=== PATIENT | female | born 1995 | race Two or more races ===

== ENCOUNTER 2024-09-24 22:25 | Emergency (ER) | payer OTHER, SELFPAY ==
[2024-09-24 22:27] VITALS: BMI 25.2
[2024-09-24 22:35] VITALS: BP 119/72; PULSE 119; RESP 18; TEMP 36.9; O2SAT 97
--- NOTE | 2024-09-24 23:13 | PD.EDVAGBL ---
ED OB Contraction Preg RMI/HPI General Chief complaint: Vaginal Bleeding Stated complaint: VAGINAL BLEEDING, HEAVY [id number] Time Seen by Provider: 09/24/24 22:57 Arrival date/time: 09/24/24 22:25 29F with history of irregular periods presents to ED with 1 day of heavier than usual vaginal bleeding with clots. Unknown status. Limitations: no limitations Related Data Previous Rx's ?Medication ?Instructions ?Recorded KCL 8MEQ 1 tab PO QDAY ##3 03/06/13 Allergies Allergy/AdvReac Type Severity Reaction Status Date / Time NKA* Allergy Uncoded 03/06/13 13:49 Review of Systems Review of Systems Systems Reviewed: All systems reviewed, normal except as documented Constitutional Constitutional: Reports system reviewed and no additional complaints, except as documented, Denies fever(s) and Denies headache(s) ENT Ears, Nose, Mouth, and Throat: Denies disequilibrium and Denies headache(s) Cardiovascular Cardiovascular: Reports system reviewed and no additional complaints, except as documented, Denies chest pain and Denies dyspnea Respiratory Respiratory: Reports system reviewed and no additional complaints, except as documented, Denies cough and Denies dyspnea Gastrointestinal Gastrointestinal: Reports system reviewed and no additional complaints, except as documented, Denies abdominal pain, Denies nausea and Denies vomiting Genitourinary Genitourinary: Reports as per HPI and Reports abnormal vaginal bleeding Neurologic Neurologic: Reports system reviewed and no additional complaints, except as documented, Denies confusion, Denies disequilibrium and Denies headache(s) Psychiatric Psychiatric: Denies confusion Past Medical History Social History SMOKING STATUS: Never smoker ED Exam General Limitations: Present no limitations General appearance: Present alert and in no apparent distress Head Head exam: Present atraumatic Eye Eye exam: Present normal appearance, PERRL and EOMI ENT ENT exam: Present normal exam, normal oropharynx and mucous membranes moist Neck Neck exam: Present normal inspection, full ROM and trachea midline Chest Chest inspection: Present normal inspection and symmetric chest wall rise Respiratory Respiratory exam: Present normal lung sounds bilaterally Cardiovascular Cardiovascular exam: Present regular rate, normal rhythm and normal heart sounds Abdominal Exam Abdominal exam: Present soft and normal bowel sounds Extremities Exam Extremities exam: Present normal inspection and full ROM Back Exam Back exam: Present normal inspection and full ROM Neurological Exam Neurological exam: Present alert, oriented X3 and CN II-XII intact Psychiatric Psychiatric exam: Present normal affect and normal mood Skin Skin exam: Present warm, dry, intact and normal color Course Quality Measures none Orders Category Date Time Status US OB transvaginal Stat Exams 09/25/24 00:08 Taken ABO/RH Type Stat Lab 09/25/24 00:07 Completed Beta HCG,Quantitative Stat Lab 09/25/24 00:07 Completed CBC Stat Lab 09/24/24 23:33 Completed CMP [Comprehensive Metabolic Panel] Stat Lab 09/24/24 23:33 Completed HCG Qualitative,Urine Stat Lab 09/24/24 23:17 Completed Vital Signs Vital signs: Vital Signs Temperature 98.4 F 09/24/24 22:35 Pulse Rate 119 H 09/24/24 22:35 Respiratory Rate 18 09/24/24 22:35 Blood Pressure 119/72 09/24/24 22:35 Pulse Oximetry (%) 97 09/24/24 22:35 Oxygen Delivery Method Room Air 09/24/24 22:35 O2 at 97% on RA and WNLs Vaginal Bleeding MDM Narrative MDM Narrative: 29F with history of irregular periods presents to ED with 1 day of heavier than usual vaginal bleeding with clots. Unknown status. Physical exam reveals no pelvic tenderness. Patient is afebrile, calm, and alert. Upon reassessment 5 hours later, patient states bleeding/cramping has significantly lessened. US no IUP. Beta HCG around 2.5k, above discriminatory zone. Moderate leukocytosis, probably reactive to likely spontaneous miscarriage (evidenced by symptom improvement w/o intervention) vs very early vs occult ectopic. O+. No anemia. Patient data External records reviewed:: None Clinical information provided by:: patient Social determinants that could affect healthcare access:: none Patient has the following chronic illnesses:: none How is presenting disease/condition affected by chronic disease/condition?: no chronic disease Evaluation data The following diagnostics were reviewed and interpreted by me:: lab results and radiology exam(s) Lab and/or radiology exams considered but not ordered:: ordered Interpretation Summary: above Medications / Prescriptions Medications or Prescriptions considered but not ordered:: not ordered Medication administrations:: n/a Consultations Consultation(s) initiated? (list below): No Diagnosis Vaginal Bleeding Differential Diagnosis: missed , threatened , dysfunctional uterine bleeding, menometrorrhagia, incomplete , ectopic without intrauterine and vaginal bleeding Most likely diagnosis given after review of the tests above:: vaginal bleeding Admission Indicated Admission indicated?: not indicated Admission Request Was there a request for admission?: No Disposition Plan Disposition Plan: Discharge Discharge Attestation Discharge Attestation: The patient and all family members were given an opportunity to ask questions and understood the discharge instructions. Discharge instructions specifically effects, indications for sooner follow up or return to the emergency department, and the expected course of current diagnosis. Patient condition: Stable Discharge Plan Plan Patient Disposition: HOME (Self Care) Disposition Comment: Stable Prescriptions/Referrals Prescriptions/Med Rec: No Action KCL 8MEQ 1 tab PO QDAY Qty: 3 0RF Referrals: Filiberto Justice MD [Primary Care Provider] - In 1 week Problem List Clinical Impression: Vaginal bleeding Patient/Caregiver Discharge Instructions Education Materials: Understanding Uterine Bleeding Additional Instructions: Please follow-up with PCP/OBGYN within 24-48 hours and return immediately if symptoms worsen. Recommend repeat HCG/US in 48-72 hours. Print Language: Greenlandic Stand Alone Forms: Patient Portal Info Letter MACO/LUANN Supervising Physician LEOLA Supervising Physician: Dr. Moura
[2024-09-25 00:03] LABS: HCG Qualitative,Urine Positive
--- NOTE | 2024-09-25 00:08 | XR_ITS ---
Examination: OB Transvaginal ultrasound of the pelvis, complete Technique: Transvaginal sonographic images pelvis performed using culver scale imaging Exam date and time: September 25, 2024 0009 hrs. Indications: Onset vaginal bleeding beginning 2 hours ago Findings: Uterus 9.7 x 3.3 x 4.7 cm No uterine mass or intrauterine gestation Endometrial sign 0.4 cm Right ovary 2.4 x 2.1 x 2.3 cm arterial flow Left ovary 3.6 x 1.4 x 2.8 cm arterial flow No fluid in the cul-de-sac Impression: No uterine mass or intrauterine gestation.
[2024-09-25 00:23] LABS: Alanine Aminotransferase 11 U/L (10-49); Albumin, Serum 4.4 gm/dL (3.5-5.0); Albumin/Globulin Ratio 1.5 (1.2-2.2); Alkaline Phosphatase 60 U/L (46-116); Anion Gap 10 (7-16); Aspartate Amino Transferase 14 U/L (0-34); BUN/Creatinine Ratio 15 Ratio (12-20); Bilirubin,Total 0.3 mg/dL (0.3-1.2); Blood Urea Nitrogen 12 mg/dL (9-23); Calcium 9.1 mg/dL (8.3-10.6); Calcium (Corrected) 9.1 mg/dL (8.5-10.1); Carbon Dioxide 22.8 mMol/L (20.0-31.0); Chloride 108 mMol/L (98-107); Creatinine (Component) 0.8 mg/dL (0.6-1.3); Estimated Creatinine Clearance 78.9 mL/min (>60); Glucose 119 mg/dL (74-106); Osmolality,Calculated 281 (275-295); Potassium 3.6 mMol/L (3.4-5.1); Sodium 141 mMol/L (136-145); Total Protein 7.4 gm/dL (5.7-8.2); eGFR > 60 See Note
[2024-09-25 00:27] LABS: Basophils # (Auto) 0.1 Thou/mm3 (0.0-0.2); Basophils % (Auto) 0 % (0-2.5); Eosinophils % (Auto) 0 % (0-10); Hematocrit 40.7 % (36.0-46.0); Hemoglobin 14.4 g/dL (12.0-16.0); Immature Granulocytes % (Auto) 0 % (0-0); Immature Granulocytes Auto 0.05 Thou/mm3 (0.00-0.00); Lymphocytes # (Auto) 1.7 Thou/mm3 (1.0-4.8); Lymphocytes % (Auto) 11 % (10-50); Mean Corpuscular HGB Conc 35.4 g/dl (31.0-37.0); Mean Corpuscular Hemoglobin 33.3 pg (25.0-35.0); Mean Corpuscular Volume 94 fL (80-100); Monocytes # (Auto) 0.7 Thou/mm3 (0.0-0.8); Monocytes % (Auto) 4 % (0-12); Neutrophils # (Auto) 13.2 Thou/mm3 (1.8-7.7); Neutrophils % (Auto) 84 % (37-80); Nucleated Red Blood Cell % 0 /100 WBC (0); Platelet Count 224 Thou/mm3 (140-440); RDW Standard Deviation 44.9 fL (36.4-46.3); Red Blood Count 4.33 Miln/mm3 (4.00-5.20); White Blood Count 15.7 Thou/mm3 (3.6-11.0)
[2024-09-25 01:08] LABS: Beta HCG,Quantitative 2517 mIU/mL (<5.0)
--- NOTE | 2024-09-25 02:16 | PRELIM_ITS ---
Pelvic ultrasound (transabdominal and transvaginal) with doppler and wave doppler spectral analysis. September 25, 2024 0009 hours Clinical history: Bleeding; positive HCG. Technique: Real-time, grayscale, transabdominal and transvaginal pelvic ultrasound was performed using Duplex scanning including arterial inflow, venous outflow, color and spectral Doppler. Comparison: None. Findings: The uterus is normal in size measuring 9.7 x 3.3 x 4.7 cm. The endometrium is unremarkable and measures 0.4 cm. Active peristalsis noted within the endometrial canal. No evidence of intrauterine . The right ovary measures 2.4 x 2.1 x 2.3 cm and is unremarkable. The left ovary measures 3.6 x 1.4 x 2.8 cm and is unremarkable. Both ovaries demonstrate color flow and spectral waveforms on Doppler evaluation. There is no adnexal mass. There is no free fluid on the submitted images. Impression: No evidence of intrauterine . Differential diagnosis includes ectopic , very early , and spontaneous . No evidence of ovarian torsion. Discussion Details: Results verbally communicated to : Dr. Alva at 02:07 AM 09/25/2024 Report Electronically Signed By: Devan Concepcion 09/25/2024 2:15:20 AM [EST]
== END 2024-09-25 04:16 | disposition home or self-care (01) ==
PROVIDERS: Physician Assistant; Emergency Provider Emergency Medicine; PCP Family Medicine
DX: N93.9 Abnormal uterine and vaginal bleeding, unspecified (principal)
CPT/HCPCS: 36415; 76817; 80053; 81025; 84702; 85025; 86900; 86901; 99284

== ENCOUNTER 2025-02-06 13:57 | Outpatient (AMB) | payer OTHER, SELFPAY ==
--- NOTE | 2025-02-06 14:31 | OBCLNT_ITS ---
Vital Signs 02/06/25 14:32 Height 1.5 m Height Method Stated Weight 52.673 kg Weight Measurement Method Standing Scale BMI 23.3 BP 115/62 Blood Pressure Source Automatic Cuff Blood Pressure Location Left Upper Arm Position Sitting Respiration 18 Pulse 93 Pulse Source Monitor Temp 97.2 F Temp Source Oral Pulse Oximetry (%) 98 Oxygen Delivery Method Room Air Allergies/Home Meds Allergies & Medications Allergies NKA* Allergy (Uncoded 02/06/25 14:34) Medication Reconciliation KCL 8MEQ 1 tab PO QDAY ##3 03/06/13 [Rx Confirmed 02/06/25] cholecalciferol (vitamin D3) 10 mcg (400 unit) capsule 10 mcg PO QDAY 30 days #30 caps 02/06/25 [Rx] doxylamine 10 mg-pyridoxine (vit B6) 10 mg tablet,delayed release (Diclegis) 1 tab PO BID 30 days #60 tabs 02/06/25 [Rx] Intake Visit Data Collection New Patient or Established: Established Patient (seen at [facility] within 3 years) Reason for Visit:: OBI Seen by Clinical Staff ONLY (RN/MA): No Support Services Coordinator Required: No Do You Feel Safe at Home: Yes Authorities Contacted: N/A PCP or OBGYN visit in last 3 months: Yes Date of Last PCP or OBGYN visit: 09/24/24 Hx Now: Yes Are you currently on any form of Control: No Pain Present Currently: No Pain Scale Used: Herrera-Burns/Numerical Pain scale:: 0 Smoking Status Smoking Status: Never smoker Questionnaires Covid-19 Vaccine Questionnaire Has patient been vacinated for Covid-19 Have you been vacinated for Covid-19: Yes PHQ-9 PHQ-2 Over the last 2 weeks, how often have you been bothered by any of the following problems? 1. Little interest or pleasure in doing things: not at all 2. Feeling down, depressed, or hopeless: not at all Total score: 0 PHQ-9 3. Trouble falling or staying asleep, or sleeping too much: Not at all 4. Feeling tired or having little energy: Not at all 5. Poor appetite or overeating: Not at all 6. Feeling bad about yourself - or that you are a failure or have let yourself or your family down: Not at all 7. Trouble concentrating on things, such as reading the newspaper or watching television: Not at all 8. Moving or speaking so slowly that other people could have noticed? - Or the opposite - being so fidgety or restless that you have been moving around a lot more than usual: not at all 9. Thoughts that you would be better off or of hurting yourself in some way: Not at all Total score: 0 If you checked off any problems, how difficult have these problems made it for you to do your work, take care of things at home, or get along with other people?: not difficult at all Source: Developed by Drs. Memo Shepherd, Janet Prather, Art Francis and colleagues, with an educational derick from [employer]. Depression screen completed yes Social History Living Situation History Marital Status: Lives With: Family Housing: House Tobacco History Smoking Status: Never smoker Second Hand Smoke Exposure: No Alcohol History Alcohol Intake: Never Domestic Abuse History Do You Feel Safe at Home: Yes History of Present Illness HPI Narrative This is a 29-year-old 2 para 0 that comes for OBI. Patient recently had a miscarriage in September. And then never got her last.. She was not using any contraception at all. So patient has no idea about her LMP or dating. She denies social habits. Denies surgery. Denies chronic illness. Normal patient denies any bleeding or signs of miscarriage. She is here with her and both are very excited about the positive . She has some nausea. History of migraines so she gets headaches. OB Initial Visit OB Flowsheet OB Flowsheet Initial Weight: Not Recorded Date -?-?-?-?-?-?-?-?-?-?-?-?- EGA Weight BP Alb Glu CTX Pres Fundal ht FHR Mov Dilation Station Effacement Hx Notes Visit Note 02/06/25 -?-?-?-?-?-?-?-?-?-?-?-?- 9w 5d 52.673 kg 115/62 absent unknown 9 140 29 yo for OBI. no dates, sab 10/18. no contraception, planned , denies SAB s/s, c/o nausea start diclegesis and vitamin D with PNV. discuss sab precaution, OB panel today, discuss NIPT and carrier screen and cost, patient will let me know if ok to do labs. schedule sono at [facility] with MFM. rtc 4 week obc Menstrual History Menstrual reliability: unknown Menstrual regularity: irregular Monthly: No Age at menarche: 11 On control pills at conception: No OB History : 2 Para: 0 Hx # Pregnancies: 0 Hx Total # of Abortions (Spontaneous & Elective): 1 # of Living Children: 0 Infection History & Risk Evaluation History of STDs: none HIV risk evaluation: low risk Hepatitis B risk evaluation: low risk Patient or partner has history of Genital Herpes: No Genetic Screening & History Genetic Screening/Teratology Counseling - Includes patient, baby's father, or anyone in either family with: 1. Patient's age 35 years or older as of estimated date of delivery: No 2. Thalassemia (Zimbabwean, Algerian, Mediterranean, or Background); MCV less than 80: No 3. Neural Tube Defect (Meningomyelocele, Spina Bifida, or Anencephaly): No 4. Congenital Heart Defect: No 5. Down Syndrome: No 6. Axel-Sachs (Ashkenazi Baptism, Cajun, Estonian [place] Islander): No 7. Kale Disease (Ashkenazi Baptism): No 8. Familial Dysautonomia (Ashkenazi Baptism): No 9. Sickle Cell Disease or Trait (): No 10. Hemophilia or other blood disorders: No 11. Muscular Dystrophy: No 12. Cystic Fibrosis: No 13. Kevin's Chorea: No 14. Mental Retardation/Autism: No 15. Other inherited genetic or chromosomal disorder: No 16. Maternal Metabolic Disorder (EG,TYPE 1 Diabetes, PKU): No 17. Patient or baby's father had a child with defects not listed above: No 18. Recurrent loss or a stillbirth: No 19. Medications (including supplements, vitamins, herbs or otc drugs)/illicit/recreational drugs/alcohol since last menstrual period: No 20. Any other: No Infection History 1. Live with someone with TB or exposed to TB: No 2. Rash or viral illness since last menstrual period: No 3. Hepatitis B,C: No Other (see comments) Source: [employer] Review of Systems Review of Systems Systems Reviewed: All systems reviewed, normal except as documented Exam General Limitations: no limitations General Appearance: alert, in no apparent distress, comfortable, cooperative, healthy appearing, well developed and well groomed Head Head exam: atraumatic, normocephalic and normal inspection Resp Respiratory exam: Present normal lung sounds bilaterally Card Cardiovascular exam: Present regular rate, normal rhythm and normal heart sounds Abdominal Abdominal exam: Present soft and normal bowel sounds Skin Skin exam: Present warm, dry, intact and normal color Office Procedures OB Clinic LOC & Office Proc's Nursing/Assessment Patient Status: Established Patient OB Clinic Nursing Assessment: Medication Reconciliation, Update PMH in EMR and Vital Signs OB Clinic Coordination of Care: Education Complex Pt/Fam, Consent,records obtained, informed consent, Lab and Imaging orders and Staff clarify orders Established Patient Charge Established Patient Point Assignment: 80 Established Patient Point Charge: EP Level 3 (80-115) Assessment & Plan Diagnosis / Problem List (1) Normal in multigravida in first trimester: Status: Acute Plan Start Diclegis today as needed for nausea and vomiting. Patient given prescription for vitamin D she is to take 10 mg daily. Discussed comfort measures for nausea such as small little meals. Schedule [facility] NT scan appointment. I discussed NIPT and carrier screen with patient and she opts to wait until she discusses with her insurance. Lab slip for OB panel today. Discussed SAB precautions and return in 4 weeks OB check Additional Plan Follow Up: 4 Weeks (obc)
[2025-02-06 14:32] VITALS: BP 115/62; PULSE 93; RESP 18; TEMP 36.2; O2SAT 98; BMI 23.3
== END 2025-02-06 14:56 | disposition home or self-care (01) ==
LOC: HODSOBC 13:57
PROVIDERS: PCP Family Medicine; Referring Provider Family Medicine; Supervising Provider Advanced Practice Midwife; Visit Provider Advanced Practice Midwife
DX: O09.291 Supervision of pregnancy with other poor reproductive or obstetric history, first trimester (principal); Z3A.09 9 weeks gestation of pregnancy
CPT/HCPCS: 99213; G0463

== ENCOUNTER 2025-02-27 14:47 | Outpatient (AMB) | payer OTHER, SELFPAY ==
[2025-02-27 15:06] VITALS: BP 118/78; PULSE 100; RESP 17; TEMP 37.1; O2SAT 97; BMI 18.2
--- NOTE | 2025-02-27 15:06 | OBCLNT_ITS ---
Vital Signs 02/27/25 15:06 Height 1.7 m Height Method Stated Weight 52.673 kg Weight Measurement Method Standing Scale BMI 18.2 BP 118/78 Blood Pressure Source Automatic Cuff Blood Pressure Location Right Upper Arm Position Sitting Respiration 17 Pulse 100 Pulse Source Monitor Temp 98.7 F Temp Source Temporal Artery Scan Pulse Oximetry (%) 97 Oxygen Delivery Method Room Air Allergies/Home Meds Allergies & Medications Allergies NKA* Allergy (Uncoded 02/27/25 15:07) Intake Visit Data Collection New Patient or Established: Established Patient (seen at [facility] within 3 years) Reason for Visit:: OBC Seen by Clinical Staff ONLY (RN/MA): No Construction Checker Required: No Do You Feel Safe at Home: Yes Authorities Contacted: N/A PCP or OBGYN visit in last 3 months: Yes Date of Last PCP or OBGYN visit: 02/06/25 Hx Now: Yes Are you currently on any form of Control: No Pain Present Currently: No Pain Scale Used: Herrera-Burns/Numerical Pain scale:: 0 Smoking Status Smoking Status: Never smoker Questionnaires Covid-19 Vaccine Questionnaire Has patient been vacinated for Covid-19 Have you been vacinated for Covid-19: No PHQ-9 PHQ-2 Over the last 2 weeks, how often have you been bothered by any of the following problems? 1. Little interest or pleasure in doing things: not at all 2. Feeling down, depressed, or hopeless: not at all Total score: 0 PHQ-9 3. Trouble falling or staying asleep, or sleeping too much: Not at all 4. Feeling tired or having little energy: Not at all 5. Poor appetite or overeating: Not at all 6. Feeling bad about yourself - or that you are a failure or have let yourself or your family down: Not at all 7. Trouble concentrating on things, such as reading the newspaper or watching television: Not at all 8. Moving or speaking so slowly that other people could have noticed? - Or the opposite - being so fidgety or restless that you have been moving around a lot more than usual: not at all 9. Thoughts that you would be better off or of hurting yourself in some way: Not at all Total score: 0 If you checked off any problems, how difficult have these problems made it for you to do your work, take care of things at home, or get along with other people?: not difficult at all Source: Developed by Drs. Memo Shepherd, Janet Prather, Art Francis and colleagues, with an educational derick from [employer]. Depression screen completed yes Social History Living Situation History Marital Status: Lives With: Family Housing: House Tobacco History Smoking Status: Never smoker Second Hand Smoke Exposure: No Alcohol History Alcohol Intake: Never Domestic Abuse History Do You Feel Safe at Home: Yes Care OB Visit Log OB Flowsheet Initial Weight: Not Recorded Date -?-?-?-?-?-?-?-?-?-?-?-?- EGA Weight BP Alb Glu CTX Pres Fundal ht FHR Mov Dilation Station Effacement Hx Notes Visit Note 02/06/25 -?-?-?-?-?-?-?-?-?-?-?-?- 9w 5d 52.673 kg 115/62 absent unknown 9 140 29 yo for OBI. no dates, sab 10/18. no contraception, planned , denies SAB s/s, c/o nausea start diclegesis and vitamin D with PNV. discuss sab precaution, OB panel today, discuss NIPT and carrier screen and cost, patient will let me know if ok to do labs. schedule sono at [facility] with MFM. rtc 4 week obc 02/27/25 -?-?-?-?-?-?-?-?-?-?-?-?- 12w 5d 52.673 kg 118/78 absent unknown 14 135 absent no ob complaints, no bleeding, unsure re NIPT patient sched for OB sono at [facility], unsure about NIPT due to insurance cost. no OB complaints, sab precaution patient sched for OB sono at [facility], unsure about NIPT due to insurance cost. no OB complaints, sab precaution. patient needs OB panel [place] ORALIA Calculator Estimated Delivery Date Method Current WG Current Estimate 09/06/25 Manual 12w 5d no dates, b ased on uterune size Office Procedures OB Clinic LOC & Office Proc's Nursing/Assessment Patient Status: Established Patient OB Clinic Nursing Assessment: Medication Reconciliation, Update PMH in EMR and Vital Signs OB Clinic Coordination of Care: Complex Care and Chronic Disease 1-5, Conse nt,records obtained, informed consent, Education Simp Pt/Fam and Staff clarify orders Special Needs: Heart tones Established Patient Charge Established Patient Point Assignment: 115 Established Patient Point Charge: EP Level 3 (80-115) Assessment & Plan Diagnosis / Problem List (1) Encounter for supervision of high risk in first trimester, antepartum: Status: Acute Plan discuss sab precaution, discuss NIPT and cost, order sono at [facility]. continue PNV Additional Plan Follow Up: 4 Weeks (obc)
== END 2025-02-27 15:54 | disposition home or self-care (01) ==
LOC: HODSOBC 14:47
PROVIDERS: Supervising Provider Advanced Practice Midwife; Visit Provider Advanced Practice Midwife
DX: O09.91 Supervision of high risk pregnancy, unspecified, first trimester (principal); Z3A.12 12 weeks gestation of pregnancy
CPT/HCPCS: 99213; G0463

== ENCOUNTER 2025-03-28 14:50 | Outpatient (AMB) | payer OTHER, SELFPAY ==
[2025-03-28 15:11] VITALS: BP 116/74; PULSE 94; RESP 17; TEMP 37; O2SAT 98; BMI 18.6
--- NOTE | 2025-03-28 15:11 | OBCLNT_ITS ---
Vital Signs 03/28/25 15:11 Height 1.7 m Height Method Measured Weight 53.694 kg Weight Measurement Method Standing Scale BMI 18.6 BP 116/74 Blood Pressure Source Automatic Cuff Blood Pressure Location Right Upper Arm Position Sitting Respiration 17 Pulse 94 Pulse Source Monitor Temp 98.6 F Temp Source Temporal Artery Scan Pulse Oximetry (%) 98 Oxygen Delivery Method Room Air Allergies/Home Meds Allergies & Medications Allergies NKA* Allergy (Uncoded 03/28/25 15:12) Intake Visit Data Collection New Patient or Established: Established Patient (seen at [facility] within 3 years) Reason for Visit:: OBC Consent obtained for Telemed Visit: No Seen by Clinical Staff ONLY (RN/MA): No Geodetic Surveyor Required: No Do You Feel Safe at Home: Yes Authorities Contacted: N/A PCP or OBGYN visit in last 3 months: Yes Date of Last PCP or OBGYN visit: 02/27/25 Hx Now: Yes Are you currently on any form of Control: No Pain Present Currently: No Pain Scale Used: Herrera-Burns/Numerical Pain scale:: 0 Smoking Status Smoking Status: Never smoker Questionnaires Covid-19 Vaccine Questionnaire Has patient been vacinated for Covid-19 Have you been vacinated for Covid-19: Yes PHQ-9 PHQ-2 Over the last 2 weeks, how often have you been bothered by any of the following problems? 1. Little interest or pleasure in doing things: not at all PHQ-9 8. Moving or speaking so slowly that other people could have noticed? - Or the opposite - being so fidgety or restless that you have been moving around a lot more than usual: not at all Source: Developed by Drs. Memo Shepherd, Janet Prather, Art Francis and colleagues, with an educational derick from [employer]. Social History Living Situation History Lives With: Family Housing: House Tobacco History Smoking Status: Never smoker Second Hand Smoke Exposure: No Alcohol History Alcohol Intake: Never Domestic Abuse History Do You Feel Safe at Home: Yes Care OB Visit Log OB Flowsheet Initial Weight: Not Recorded Date -?-?-?-?-?-?-?-?-?-?-?-?- EGA Weight BP Alb Glu CTX Pres Fundal ht FHR Mov Dilation Station Effacement Hx Notes Visit Note 02/06/25 -?-?-?-?-?-?-?-?-?-?-?-?- 9w 5d 52.673 kg 115/62 absent unknown 9 140 29 yo for OBI. no dates, sab 10/18. no contraception, planned , denies SAB s/s, c/o nausea start diclegesis and vitamin D with PNV. discuss sab precaution, OB panel today, discuss NIPT and carrier screen and cost, patient will let me know if ok to do labs. schedule sono at [facility] with MFM. rtc 4 week obc 02/27/25 -?-?-?-?-?-?-?-?-?-?-?-?- 12w 5d 52.673 kg 118/78 absent unknown 14 135 absent no ob complaints, no bleeding, unsure re NIPT patient sched for OB sono at [facility], unsure about NIPT due to insurance cost. no OB complaints, sab precaution patient sched for OB sono at [facility], unsure about NIPT due to insurance cost. no OB complaints, sab precaution. patient needs OB panel NV 03/28/25 -?-?-?-?-?-?-?-?-?-?-?-?- 16w 6d 53.694 kg 116/74 absent unknown 16 135 active Doing well. No OB complaints. No bleeding. No leaking. No contractions. MFM appointment pending OB panel today a t the M OB lab. Follow-up on pending [place] MFM appointment. Discussed dates. SAB precautions. Return in 4 weeks OB check ORALIA Calculator Estimated Delivery Date Method Current WG Current Estimate 09/06/25 Ultrasound #1 16w 6d Other Estimates 09/06/25 Manual 16w 6d no dates, ba sed on uterune size Notes Visit Date: 03/28/25 Last Updated by: Eli Smith CNM 30 yo . no dates. 1st sono 03/16/25. IUP 15w1. EDC: 09/06/25. NIPT/carrier screen- Office Procedures OB Clinic LOC & Office Proc's Nursing/Assessment Patient Status: Established Patient OB Clinic Nursing Assessment: Medication Reconciliation and Update PMH in EMR OB Clinic Coordination of Care: Complex Care and Chronic Disease 1-5, Consent,records obtained, informed consent, Education Simp Pt/Fam and 4+ Authorizations needed Special Needs: Heart tones Established Patient Charge Established Patient Point Assignment: 115 Established Patient Point Charge: EP Level 3 (80-115) Assessment & Plan Diagnosis / Problem List (1) Encounter for supervision of high risk in second trimester, antepartum: Status: Acute Plan OB panel today, MFM pending, discuss sab precaution, weight. hydrate. rtc 4 week obc Additional Plan Follow Up: 4 Weeks (obc)
== END 2025-03-28 15:28 | disposition home or self-care (01) ==
LOC: HODSOBC 14:50
PROVIDERS: Supervising Provider Advanced Practice Midwife; Visit Provider Advanced Practice Midwife
DX: O09.92 Supervision of high risk pregnancy, unspecified, second trimester (principal); Z3A.16 16 weeks gestation of pregnancy
CPT/HCPCS: 99213; G0463

== ENCOUNTER → 2025-03-28 | Outpatient (CLI) | payer OTHER, SELFPAY ==
[2025-03-28 16:14] LABS: Collection Type, Urine Clean Catch; Squamous Epithelial Cell,Urine 0 /hpf (0-5)
[2025-03-28 16:31] LABS: Basophils # (Auto) 0.0 Thou/mm3 (0.0-0.2); Basophils % (Auto) 0 % (0-2.5); Eosinophils # (Auto) 0.1 Thou/mm3 (0.0-0.5); Eosinophils % (Auto) 0 % (0-10); Hematocrit 39.1 % (36.0-46.0); Hemoglobin 13.4 g/dL (12.0-16.0); Immature Granulocytes Auto 0.05 Thou/mm3 (0.00-0.00); Lymphocytes # (Auto) 3.0 Thou/mm3 (1.0-4.8); Lymphocytes % (Auto) 23 % (10-50); Mean Corpuscular HGB Conc 34.3 g/dl (31.0-37.0); Mean Corpuscular Hemoglobin 32.9 pg (25.0-35.0); Mean Corpuscular Volume 96 fL (80-100); Monocytes # (Auto) 0.7 Thou/mm3 (0.0-0.8); Monocytes % (Auto) 6 % (0-12); Neutrophils # (Auto) 8.9 Thou/mm3 (1.8-7.7); Neutrophils % (Auto) 70 % (37-80); Nucleated Red Blood Cell # 0.00 Thou/mm3 (0.00-0.00); Nucleated Red Blood Cell % 0 /100 WBC (0); Platelet Count 256 Thou/mm3 (140-440); RDW Standard Deviation 47.0 fL (36.4-46.3); Red Blood Count 4.07 Miln/mm3 (4.00-5.20); White Blood Count 12.7 Thou/mm3 (3.6-11.0)
[2025-03-28 16:44] LABS: Glucose Estimated Average 94 mg/dL (80-131); Hemoglobin A1C 4.9 % Hgb (4.8-6.0)
[2025-03-28 16:50] LABS: Amorphous Crystals,Urine Present (Absent); Bacteria,Urine Rare; Bilirubin,Urine Negative (Negative); Blood,Urine Negative (Negative); Color,Urine Lt-Yellow (Lt Yel-Yel); Culture Indicated,Urine Not Indicated; Glucose, Urine 3+ (Negative); Ketones,Urine Trace (Negative); Leukocyte Esterase,Urine Negative (Negative); Nitrite,Urine Negative (Negative); PH,Urine 6.5 (5.0-7.0); Protein,Urine Trace (Neg - Trace); RBC,Urine 4 /hpf (0-3); Specific Gravity,Urine 1.027 (1.001-1.035); Urobilinogen,Urine Negative mg/dL (0.0-1.0); WBC,Urine 5 /hpf (0-5)
[2025-03-28 17:31] LABS: Clarity,Urine Hazy (Clear/Hazy)
[2025-03-28 17:39] LABS: HIV (1&2) Antibody Rapid Non-Reactive
[2025-03-28 17:54] LABS: Hepatitis B Surface Antigen Non Reactive (Non React); Hepatitis C Antibody Non Reactive (Non React); Rubella, IgG Antibody Reactive (Immune)
[2025-03-29 10:09] LABS: Chlamydia trachomatis PCR Negative (Not Detect); Neisseria Gonorrhoeae DNA PCR Negative (Not Detect); Trichomonas Negative (Negative)
== END | disposition home or self-care (01) ==
LOC: COPL 15:50
PROVIDERS: Referring Provider Advanced Practice Midwife; Visit Provider Advanced Practice Midwife
DX: Z34.90 Encounter for supervision of normal pregnancy, unspecified, unspecified trimester (principal)
CPT/HCPCS: 36415; 81001; 83036; 85025; 86703; 86762; 86780; 86803; 86850; 86900; 86901; 87340; 87491; 87591; 87661

== ENCOUNTER → 2025-03-29 | Outpatient (CLI) | payer OTHER, SELFPAY ==
[2025-03-29 13:52] LABS: Syphilis Nonreactive (Nonreactive)
== END | disposition home or self-care (01) ==
LOC: COPL 11:43
PROVIDERS: PCP Family Medicine; Referring Provider Advanced Practice Midwife; Visit Provider Advanced Practice Midwife
DX: Z34.90 Encounter for supervision of normal pregnancy, unspecified, unspecified trimester (principal)
CPT/HCPCS: 36415; 86780

== ENCOUNTER 2025-05-15 14:17 | Outpatient (AMB) | payer OTHER, SELFPAY ==
[2025-05-15 14:31] VITALS: BP 111/73; PULSE 101; RESP 20; TEMP 36.8; O2SAT 98; BMI 25.1
--- NOTE | 2025-05-15 14:31 | OBCLNT_ITS ---
Vital Signs 05/15/25 14:31 Height 1.5 m Height Method Stated Weight 56.416 kg Weight Measurement Method Standing Scale BMI 25.1 BP 111/73 Blood Pressure Source Automatic Cuff Blood Pressure Location Left Upper Arm Position Sitting Respiration 20 Pulse 101 H Pulse Source Monitor Temp 98.2 F Temp Source Oral Pulse Oximetry (%) 98 Oxygen Delivery Method Room Air Allergies/Home Meds Allergies & Medications Allergies NKA* Allergy (Uncoded 05/15/25 14:32) Medication Reconciliation No Known Home Medications 05/15/25 [History Confirmed 05/15/25] Intake Visit Data Collection New Patient or Established: Established Patient (seen at [facility] within 3 years) Reason for Visit:: CARE Seen by Clinical Staff ONLY (RN/MA): No Feather Trimmer Required: No Do You Feel Safe at Home: Yes Authorities Contacted: N/A PCP or OBGYN visit in last 3 months: Yes Hx Now: Yes Are you currently on any form of Control: No Pain Present Currently: No Pain Scale Used: Herrera-Burns/Numerical Pain scale:: 0 Smoking Status Smoking Status: Never smoker Questionnaires Covid-19 Vaccine Questionnaire Has patient been vacinated for Covid-19 Have you been vacinated for Covid-19: Yes PHQ-9 PHQ-2 Over the last 2 weeks, how often have you been bothered by any of the following problems? 1. Little interest or pleasure in doing things: not at all 2. Feeling down, depressed, or hopeless: not at all Total score: 0 PHQ-9 3. Trouble falling or staying asleep, or sleeping too much: Not at all 4. Feeling tired or having little energy: Not at all 5. Poor appetite or overeating: Not at all 6. Feeling bad about yourself - or that you are a failure or have let yourself or your family down: Not at all 7. Trouble concentrating on things, such as reading the newspaper or watching television: Not at all 8. Moving or speaking so slowly that other people could have noticed? - Or the opposite - being so fidgety or restless that you have been moving around a lot more than usual: not at all 9. Thoughts that you would be better off or of hurting yourself in some way: Not at all Total score: 0 Source: Developed by Janet Moctezuma B.W. Crescencio, Art Francis and colleagues, with an educational derick from [employer]. Depression screen completed yes Social History Living Situation History Lives With: Family Housing: House Tobacco History Smoking Status: Never smoker Second Hand Smoke Exposure: No Alcohol History Alcohol Intake: Never Domestic Abuse History Do You Feel Safe at Home: Yes Care OB Visit Log OB Flowsheet Initial Weight: Not Recorded Date -?-?-?-?-?-?-?-?-?-?-?-?- EGA Weight BP Alb Glu CTX Pres Fundal ht FHR Mov Dilation Station Effacement Hx Notes Visit Note 02/06/25 -?-?-?-?-?-?-?-?-?-?-?-?- 9w 5d 52.673 kg 115/62 absent unknown 9 140 29 yo for OBI. no dates, sab 10/18. no contraception, planned , denies SAB s/s, c/o nausea start diclegesis and vitamin D with PNV. discuss sab precaution, OB panel today, discuss NIPT and carrier screen and cost, patient will let me know if ok to do labs. schedule sono [facility] with MFM. rtc 4 week obc 02/27/25 -?-?-?-?-?-?-?-?-?-?-?-?- 12w 5d 52.673 kg 118/78 absent unknown 14 135 absent no ob complaints, no bleeding, unsure re NIPT patient sched for OB sono at [facility], unsure about NIPT due to insurance cost. no OB complaints, sab precaution patient sched for OB sono at [facility], unsure about NIPT due to insurance cost. no OB complaints, sab precaution. patient needs OB panel NV 03/28/25 -?-?-?-?-?-?-?-?-?-?-?-?- 16w 6d 53.694 kg 116/74 absent unknown 16 135 active Doing well. No OB complaints. No bleeding. No leaking. No contractions. MFM appointment pend ing OB panel today a t the [facility] OB lab. Follow-up on pending [place] MFM appointment. Discussed dates. SAB precautions. Return in 4 weeks OB check 05/15/25 -?-?-?-?-?-?-?-?-?-?-?-?- 23w 5d 56.416 kg 111/73 absent unknown 23 135 active Doing well. Reports movement. No complaints of labor. Denies bleeding, contractions, leaking Third trimester labs ordered. Schedule sonogram at 32 weeks for growth. Discussed labor precautions. Increase fluids. Return in 4 weeks OB check ORALIA Calculator Estimated Delivery Date Method Current WG Current Estimate 09/06/25 Ultrasound #1 23w 5d Other Estimates 09/06/25 Ultrasound #2 23w 5d 09/06/25 Manual 23w 5d no dates, based on uterune size Notes Visit Date: 05/15/25 Last Updated by: Eli Smith CNM O+,abs-, rpr;;nr, rub imm, hbsag-, hiv-, HC-,GC/CT-, Visit Date: 03/28/25 Last Updated by: Eli Smith CNM 30 yo . no dates. 1st sono 03/16/25. IUP 15w1. EDC: 09/06/25. NIPT/carrier screen- Office Procedures OB Clinic LOC & Office Proc's Nursing/Assessment Patient Status: Established Patient OB Clinic Nursing Assessment: Medication Reconciliation, Update PMH in EMR and Vital Signs OB Clinic Coordination of Care: Complex Care and Chronic Disease 1-5, Consent,records obtained, informed consent, Education Simp Pt/Fam, Lab and Imaging orders, Results/Orders obtained and Staff clarify orders Special Needs: Heart tones Established Patient Charge Established Patient Point Assignment: 135 Established Patient Point Charge: EP Level 4 (120-155) Assessment & Plan Diagnosis / Problem List (1) Encounter for supervision of high risk in second trimester, antepartum: Status: Acute Plan 3rd tri lab,ptl precaution reviewed. hydrate. f/u growth scan at 32 week. rtc 4 week Additional Plan Follow Up: 4 Weeks (obc)
== END 2025-05-15 15:28 | disposition home or self-care (01) ==
LOC: HODSOBC 14:17
PROVIDERS: PCP Family Medicine; Referring Provider Family Medicine; Supervising Provider Advanced Practice Midwife; Visit Provider Advanced Practice Midwife
DX: O09.92 Supervision of high risk pregnancy, unspecified, second trimester (principal); Z3A.23 23 weeks gestation of pregnancy
CPT/HCPCS: 99214; G0463

== ENCOUNTER 2025-06-19 14:59 | Outpatient (AMB) | payer OTHER, SELFPAY ==
[2025-06-19 15:06] VITALS: BP 109/74; PULSE 88; RESP 18; TEMP 36.6; O2SAT 98; BMI 25.2
--- NOTE | 2025-06-19 15:06 | AMB.OBVISIT ---
Vital Signs 06/19/25 15:06 Height 1.5 m Height Method Stated Weight 56.926 kg Weight Measurement Method Standing Scale BMI 25.2 BP 109/74 Blood Pressure Source Automatic Cuff Blood Pressure Location Right Upper Arm Position Sitting Respiration 18 Pulse 88 Pulse Source Monitor Temp 97.8 F Temp Source Temporal Artery Scan Pulse Oximetry (%) 98 Oxygen Delivery Method Room Air Allergies/Home Meds Allergies & Medications Allergies NKA* Allergy (Uncoded 06/19/25 15:08) Medication Reconciliation No Known Home Medications 05/15/25 [History Confirmed 06/19/25] Intake Visit Data Collection New Patient or Established: Established Patient (seen at [facility] within 3 years) Reason for Visit:: OBC Seen by Clinical Staff ONLY (RN/MA): No Word Processing Machine Operator Required: No Do You Feel Safe at Home: Yes Authorities Contacted: N/A PCP or OBGYN visit in last 3 months: Yes Date of Last PCP or OBGYN visit: 05/15/25 Hx Now: Yes Are you currently on any form of Control: No Pain Present Currently: No Pain Scale Used: Herrera-Burns/Numerical Pain scale:: 0 Smoking Status Smoking Status: Never smoker Immunizations Flu Vaccine in the Last 12 Months: No Flu Vaccine Exclusion Criteria: No Exclusion Criteria Questionnaires Covid-19 Vaccine Questionnaire Has patient been vacinated for Covid-19 Have you been vacinated for Covid-19: No PHQ-9 PHQ-2 Over the last 2 weeks, how often have you been bothered by any of the following problems? 1. Little interest or pleasure in doing things: not at all 2. Feeling down, depressed, or hopeless: not at all Total score: 0 PHQ-9 3. Trouble falling or staying asleep, or sleeping too much: Not at all 4. Feeling tired or having little energy: Not at all 5. Poor appetite or overeating: Not at all 6. Feeling bad about yourself - or that you are a failure or have let yourself or your family down: Not at all 7. Trouble concentrating on things, such as reading the newspaper or watching television: Not at all 8. Moving or speaking so slowly that other people could have noticed? - Or the opposite - being so fidgety or restless that you have been moving around a lot more than usual: not at all 9. Thoughts that you would be better off or of hurting yourself in some way: Not at all Total score: 0 If you checked off any problems, how difficult have these problems made it for you to do your work, take care of things at home, or get along with other people?: not difficult at all Source: Developed by Drs. Memo Shepherd, Janet Prather, Art Francis and colleagues, with an educational derick from [employer]. Depression screen completed yes Social History Living Situation History Marital Status: Lives With: Family Housing: House Tobacco History Smoking Status: Never smoker Second Hand Smoke Exposure: No Alcohol History Alcohol Intake: Never Domestic Abuse History Do You Feel Safe at Home: Yes Care OB Visit Log OB Flowsheet Initial Weight: Not Recorded Date <del>?</del> EGA Weight BP Alb Glu CTX Pres Fundal ht FHR Mov Dilation Station Effacement Hx Notes Visit Note 02/06/25 <del>?</del> 9w 5d 52.673 kg 115/62 absent unknown 9 140 29 yo for OBI. no dates, sab 10/18. no contraception, planned , denies SAB s/s, c/o nausea start diclegesis and vitamin D with PNV. discuss sab precaution, OB panel today, discuss NIPT and carrier screen and cost, patient will let me know if ok to do labs. schedule sono at [facility] with MFM. rtc 4 week obc 02/27/25 <del>?</del> 12w 5d 52.673 kg 118/78 absent unknown 14 135 absent no ob complaints, no bleeding, unsure re NIPT patient sched for OB sono at [facility], unsure about NIPT due to insurance cost. no OB complaints, sab precaution patient sched for OB sono at [facility], unsure about NIPT due to insurance cost. no OB complaints, sab precaution. patient needs OB panel NV 03/28/25 <del>?</del> 16w 6d 53.694 kg 116/74 absent unknown 16 135 active Doing well. No OB complaints. No bleeding. No leaking. No contractions. MFM appointment pending OB panel today at the [facility]. Follow-up on pending [place] MFM appointment. Discussed dates. SAB precautions. Return in 4 weeks OB check 05/15/25 <del>?</del> 23w 5d 56.416 kg 111/73 absent unknown 23 135 active Doing well. Reports movement. No complaints of labor. Denies bleeding, contractions, leaking Third trimester labs ordered. Schedule sonogram at 32 weeks for growth. Discussed labor precautions. Increase fluids. Return in 4 weeks OB check 06/19/25 <del>?</del> 28w 5d 56.926 kg 109/74 absent unknown 28 136 active Doing well. Reports good movement. Patient needs a note from work with due date. Denies leaking, bleeding, contractions Discussed abnormal 1 hour. Schedule 3-hour GTT. Labor precautions and danger signs symptoms reviewed. Growth sono at next visit. ORALIA Calculator Estimated Delivery Date Method Current WG Current Estimate 09/06/25 Ultrasound #1 28w 5d Other Estimates 09/06/25 Ultrasound #2 28w 5d 09/06/25 Manual 28w 5d no dates, based on uterune size Notes Visit Date: 06/19/25 Last Updated by: Eli Smith CNM 3RD TRI LABS 1 HR GTT: 176. 12/37, A1: 4.9 Visit Date: 05/15/25 Last Updated by: Eli Smith CNM O+,abs-, rpr;;nr, rub imm, hbsag-, hiv-, HC-,GC/CT-, 13/39/256 Visit Date: 03/28/25 Last Updated by: Eli Smith CNM 30 yo . no dates. 1st sono 03/16/25. IUP 15w1. EDC: 09/06/25. NIPT/carrier screen- Office Procedures OBC Clinic LOC & Office Proc's Nursing/Assessment Patient Status: Established Patient OB Clinic Nursing Assessment: Medication Reconciliation, Update PMH in EMR and Vital Signs OB Clinic Coordination of Care: Complex Care and Chronic Disease 1-5, Education Complex Pt/Fam, Consent,records obtained, informed consent, Lab and Imaging orders, Results/Orders obtained and Staff clarify orders Special Needs: Heart tones Established Patient Charge Established Patient Point Assignment: 140 Established Patient Point Charge: EP Level 4 (120-155) Assessment & Plan Diagnosis / Problem List (1) Encounter for supervision of high risk in third trimester, antepartum: Status: Acute (2) Diet controlled gestational diabetes mellitus (GDM) in third trimester: Status: Acute Plan Discussed abnormal 1 hour. 3-hour GTT today. Schedule growth scan next visit. Discussed labor precautions. I reviewed GDM diet with patient and advised her to walk 40 minutes a day return in 2 weeks OB check Additional Plan Follow Up: 2 Weeks (obc)
== END 2025-06-19 15:41 | disposition home or self-care (01) ==
LOC: HODSOBC 14:59
PROVIDERS: Supervising Provider Advanced Practice Midwife; Visit Provider Advanced Practice Midwife
DX: O09.893 Supervision of other high risk pregnancies, third trimester (principal); O24.410 Gestational diabetes mellitus in pregnancy, diet controlled; Z3A.28 28 weeks gestation of pregnancy
CPT/HCPCS: 99214; G0463

== ENCOUNTER → 2025-06-29 | Outpatient (CLI) | payer OTHER, SELFPAY ==
[2025-06-29 08:49] LABS: Glucose,Fasting Gestational 77 mg/dL (70-120)
[2025-06-29 10:54] LABS: Glucose 1 Hour, Gest 157 mg/dL (50-190)
[2025-06-29 10:56] LABS: Glucose 2 Hour,Gest 164 mg/dL (50-165)
[2025-06-29 11:40] LABS: Glucose 3 Hour, Gest 120 mg/dL (50-145)
== END | disposition home or self-care (01) ==
LOC: COPL 07:44
PROVIDERS: PCP Family Medicine; Referring Provider Advanced Practice Midwife; Visit Provider Advanced Practice Midwife
DX: O24.410 Gestational diabetes mellitus in pregnancy, diet controlled (principal); O09.93 Supervision of high risk pregnancy, unspecified, third trimester
CPT/HCPCS: 36415; 82951; 82952

== ENCOUNTER 2025-07-10 14:49 | Outpatient (AMB) | payer OTHER, SELFPAY ==
[2025-07-10 14:53] VITALS: BP 121/77; PULSE 92; RESP 18; TEMP 36.4; O2SAT 99; BMI 25.6
--- NOTE | 2025-07-10 14:53 | OBCLNT_ITS ---
Vital Signs 07/10/25 14:53 Height 1.5 m Height Method Stated Weight 57.72 kg Weight Measurement Method Standing Scale BMI 25.6 BP 121/77 Blood Pressure Source Automatic Cuff Blood Pressure Location Left Upper Arm Position Sitting Respiration 18 Pulse 92 Pulse Source Monitor Temp 97.5 F Temp Source Oral Pulse Oximetry (%) 99 Oxygen Delivery Method Room Air Allergies/Home Meds Allergies & Medications Allergies NKA* Allergy (Uncoded 07/10/25 14:54) Medication Reconciliation No Known Home Medications 05/15/25 [History Confirmed 07/10/25] Intake Visit Data Collection New Patient or Established: Established Patient (seen at [facility] within 3 years) Reason for Visit:: CARE/ DISCUSS LAB RESULTS Seen by Clinical Staff ONLY (RN/MA): No Production Support Engineer Required: No Do You Feel Safe at Home: Yes Authorities Contacted: N/A PCP or OBGYN visit in last 3 months: Yes Hx Now: Yes Are you currently on any form of Control: No Pain Present Currently: No Pain Scale Used: Herrera-Burns/Numerical Pain scale:: 0 Smoking Status Smoking Status: Never smoker Immunizations Flu Vaccine in the Last 12 Months: No Flu Vaccine Exclusion Criteria: Refused by Patient Questionnaires Covid-19 Vaccine Questionnaire Has patient been vacinated for Covid-19 Have you been vacinated for Covid-19: Yes PHQ-9 PHQ-2 Over the last 2 weeks, how often have you been bothered by any of the following problems? 1. Little interest or pleasure in doing things: not at all 2. Feeling down, depressed, or hopeless: not at all Total score: 0 PHQ-9 3. Trouble falling or staying asleep, or sleeping too much: Not at all 4. Feeling tired or having little energy: Not at all 5. Poor appetite or overeating: Not at all 6. Feeling bad about yourself - or that you are a failure or have let yourself or your family down: Not at all 7. Trouble concentrating on things, such as reading the newspaper or watching television: Not at all 8. Moving or speaking so slowly that other people could have noticed? - Or the opposite - being so fidgety or restless that you have been moving around a lot more than usual: not at all 9. Thoughts that you would be better off or of hurting yourself in some way: Not at all Total score: 0 Source: Developed by Drs. Memo Shepherd, Janet Prather, Art Francis and colleagues, with an educational derick from [employer]. Depression screen completed yes Social History Living Situation History Lives With: Family Housing: House Tobacco History Smoking Status: Never smoker Second Hand Smoke Exposure: No Alcohol History Alcohol Intake: Never Domestic Abuse History Do You Feel Safe at Home: Yes Care OB Visit Log OB Flowsheet Initial Weight: Not Recorded Date -?-?-?-?-?-?-?-?-?-?-?-?- EGA Weight BP Alb Glu CTX Pres Fundal ht FHR Mov Dilation Station Effacement Hx Notes Visit Note 02/06/25 -?-?-?-?-?-?-?-?-?-?-?-?- 9w 5d 52.673 kg 115/62 absent unknown 9 140 29 yo for OBI. no dates, sab 10/18. no contraception, planned , denies SAB s/s, c/o nausea start diclegesis and vitamin D with PNV. discuss sab precaution, OB panel today, discuss NIPT and carrier screen and cost, patient will let me know if ok to do labs. schedule sono at [facility] with MFM. rtc 4 week obc 02/27/25 -?-?-?-?-?-?-?-?-?-?-?-?- 12w 5d 52.673 kg 118/78 absent unknown 14 135 absent no ob complaints, no bleeding, unsure re NIPT patient sched for OB sono at [facility], unsure about NIPT due to insurance cost. no OB complaints, sab precaution patient sched for OB sono at [facility], unsure about NIPT due to insurance cost. no OB complaints, sab precaution. patient needs OB panel NV 03/28/25 -?-?-?-?-?-?-?-?-?-?-?-?- 16w 6d 53.694 kg 116/74 absent unknown 16 135 active Doing well. No OB complaints. No bleeding. No leaking. No contractions. MFM appointment pending OB panel today a t the [facility]. Follow-up on pending [place] MFM appointment. Discussed dates. SAB precautions. Return in 4 weeks OB check 05/15/25 -?-?-?-?-?-?-?-?-?-?-?-?- 23w 5d 56.416 kg 111/73 absent unknown 23 135 active Doing well. Reports movement. No complaints of labor. Denies bleeding, contractions, leaking Third trimester labs ordered. Schedule sonogram at 32 weeks for growth. Discussed labor precautions. Increase fluids. Return in 4 weeks OB check 06/19/25 -?-?-?-?-?-?-?-?-?-?-?-?- 28w 5d 56.926 kg 109/74 absent unknown 28 136 active Doing well. Reports good movement. Patient needs a note from work with due date. Denies andrew ez, bleeding, contractions Dis cussed abnormal 1 hour. Schedule 3-hour GTT. Labor precautions and danger signs symptoms reviewed. Growth sono at next visit. 07/10/25 -?-?-?-?-?-?-?-?-?--?-?-?- 31w 5d 57.72 kg 121/77 absent unknown 30 136 active Denies leaking, bleeding, contractions. Reports good movement. No OB complaints Discussed normal 3-hour GTT. Tdap today. Schedule anatomy scan for growth. [facility]. Discussed labor precautions. Return in 2 weeks for OB check. Discussed diet, weight gain, walk 2 hours a day ORALIA Calculator Estimated Delivery Date Method Current WG Current Estimate 09/06/25 Ultrasound #1 31w 5d Other Estimates 09/06/25 Ultrasound #2 31w 5d 09/06/25 Manual 31w 5d no dates, based on uterune size Notes Visit Date: 07/10/25 Last Updated by: Eli Smith CNM 3 hr gtt: 2 hr gtt elevated, 3 values normal Visit Date: 06/19/25 Last Updated by: Eli Smith CNM 3RD TRI LABS 1 HR GTT: 176. 12/37, A1: 4.9 Visit Date: 05/15/25 Last Updated by: Eli Smith CNM O+,abs-, rpr;;nr, rub imm, hbsag-, hiv-, HC-,GC/CT-, 13/39/256 Visit Date: 03/28/25 Last Updated by: Eil Smith CNM 30 yo . no dates. 1st sono 03/16/25. IUP 15w1. EDC: 09/06/25. NIPT/carrier screen- Office Procedures OBC Clinic LOC & Office Proc's Nursing/Assessment Patient Status: Established Patient OB Clinic Nursing Assessment: Medication Reconciliation, Update PMH in EMR and Vital Signs OB Clinic Coordination of Care: Complex Care and Chronic Disease 1-5, Consent,records obtained, informed consent, Education Simp Pt/Fam, 1 Ins Authorization, Lab and Imaging orders, Results/Orders obtained and Staff clarify orders Special Needs: Heart tones Established Patient Charge Established Patient Point Assignment: 150 Established Patient Point Charge: EP Level 4 (120-155) Injection/Vaccine Admin SQ Im Injection: Yes Immunizations diphth,pertus(acell),tetanus 2.5 Lf unit-8 mcg-5 Lf/0.5mL IM syringe Performing Provider: Eli Smith CNM Performing Location: [facility] Administered by: Mira Maddox MA on 07/10/25 16:29 Dose Route Admin Location Dispensed Lot Number Expiration Date Pack age [facility] NDC [employer] 0.5 mL IM Left Deltoid 0.5 mL [id number] 02/03/28 18916-082-86 [id number] [employer] VIS Given Date VIS Provided VIS Publication Date 07/10/25 Single Vaccine 24 Eligibility Eligibility Date Funding Source Public Non-[facility] Assessment & Plan Diagnosis / Problem List (1) Seetp-kyv-ohfdy fetus, third trimester: Status: Acute (2) Encounter for supervision of high risk in second trimester, antepartum: Status: Acute Plan Tdap today. Discussed labor precautions. Kick count twice a day. Schedule sono for growth here at [facility] return in 2 weeks OB check Additional Plan Follow Up: 2 Weeks (obc)
== END 2025-07-10 15:15 | disposition home or self-care (01) ==
LOC: HODSOBC 14:49
PROVIDERS: Supervising Provider Advanced Practice Midwife; Visit Provider Advanced Practice Midwife
DX: O09.893 Supervision of other high risk pregnancies, third trimester (principal); O36.5930 Maternal care for other known or suspected poor fetal growth, third trimester, not applicable or unspecified; Z3A.31 31 weeks gestation of pregnancy; Z23 Encounter for immunization
CPT/HCPCS: 90471; 90715; 96372; 99214; G0463

== ENCOUNTER 2025-07-24 14:46 | Outpatient (AMB) | payer OTHER, SELFPAY ==
[2025-07-24 15:01] VITALS: BP 104/69; PULSE 80; RESP 16; TEMP 36.6; O2SAT 97; BMI 26.2
--- NOTE | 2025-07-24 15:01 | OBCLNT_ITS ---
Vital Signs 07/24/25 15:01 Height 1.5 m Height Method Stated Weight 58.967 kg Weight Measurement Method Standing Scale BMI 26.2 BP 104/69 Blood Pressure Source Automatic Cuff Blood Pressure Location Left Upper Arm Position Sitting Respiration 16 Pulse 80 Pulse Source Monitor Temp 98 F Temp Source Oral Pulse Oximetry (%) 97 Oxygen Delivery Method Room Air Allergies/Home Meds Allergies & Medications Allergies NKA* Allergy (Uncoded 07/24/25 15:16) Medication Reconciliation No Known Home Medications 05/15/25 [History Confirmed 07/24/25] Immunizations Immunizations Flu Vaccine in the Last 12 Months: No Flu Vaccine Exclusion Criteria: Refused by Patient Care OB Visit Log OB Flowsheet Initial Weight: Not Recorded Date -?-?-?-?-?-?-?-?-?-?-?-?- EGA Weight BP Alb Glu CTX Pres Fundal ht FHR Mov Dilation Station Effacement Hx Notes Visit Note 02/06/25 -?-?-?-?-?-?-?-?-?-?-?-?- 9w 5d 52.673 kg 115/62 absent unknown 9 140 29 yo for OBI. no dates, sab 10/18. no contraception, planned , denies SAB s/s, c/o nausea start diclegesis and vitamin D with PNV. discuss sab precaution, OB panel today, discuss NIPT and carrier screen and cost, patient will let me know if ok to do labs. schedule sono at [facility] with MFM. rtc 4 week obc 02/27/25 -?-?--?-?-?-?-?-?-?-?-?-?- 12w 5d 52.673 kg 118/78 absent unknown 14 135 absent no ob complaints, no bleeding, unsure re NIPT patient sched for OB sono at [facility], unsure about NIPT due to insurance cost. no OB complaints, sab precaution patient sched for OB sono at [facility], unsure about NIPT due to insurance cost. no OB complaints, sab precaution. patient needs OB panel [place] 03/28/25 -?-?-?-?-?-?-?-?-?-?-?-?- 16w 6d 53.694 kg 116/74 absent unknown 16 135 active Doing well. No OB complaints. No bleeding. No leaking. No contractions. MFM appointment pending OB panel today [facility]. Follow-up on pending [place] MFM appointment. Discussed dates. SAB precautions. Return in 4 weeks OB check 05/15/25 -?-?-?-?-?-?-?-?-?-?-?-?- 23w 5d 56.416 kg 111/73 absent unknown 23 135 active Doing well. Reports movement. No complaints of labor. Denies bleeding, contractions, leaking Third trimester labs ordered. Schedule sonogram at 32 weeks for growth. Discussed labor precautions. Increase fluids. Return in 4 weeks OB check 06/19/25 -?-?-?-?-?-?-?-?-?-?-?-?- 28w 5d 56.926 kg 109/74 absent unknown 28 136 active Doing well. Reports good movement. Patient needs a note from work with due date. Denies leaking, bleeding, contractions Discussed abnormal 1 hour. Schedule 3-hour GTT. Labor precautions and danger signs symptoms reviewed. Growth sono at next visit. 07/10/25 -?-?-?-?-?-?-?-?-?-?-?-?- 31w 5d 57.72 kg 121/77 absent unknown 30 136 active Denies leaking, bleeding, contractions. Reports good movement. No OB complaints Discussed normal 3-hour GTT. Tdap today. Schedule anatomy scan for growth. [facility] Discussed labor precautions. Return in 2 weeks for OB check. Discussed diet, weight gain, walk 2 hours a day 07/24/25 -?-?-?-?-?-?-?-?-?-?-?-?- 33w 5d 58.967 kg 104/69 absent cephalic 33 135 active Denies leaking, bleeding, contractions. Reports good movement Reviewed 3-hour GTT. Only 1 value was elevated. Discussed labor precautions. Kick count twice a day. We discussed ER precautions and diet and weight. Ultrasound is pending. ORALIA Calculator Estimated Delivery Date Method Current WG Current Estimate 09/06/25 Ultrasound #1 33w 5d Other Estimates 09/06/25 Ultrasound #2 33w 5d 01/14/26 Manual 33w 5d no dates. Final oralia 09/06/25 Notes Visit Date: 07/10/25 Last Updated by: Eli Smith CNM 3 hr gtt: 2 hr gtt elevated, 3 values normal Visit Date: 06/19/25 Last Updated by: Eli Smith CNM 3RD TRI LABS 1 HR GTT: 176. 12/37, A1: 4.9 Visit Date: 05/15/25 Last Updated by: Eli Smith CNM O+,abs-, rpr;;nr, rub imm, hbsag-, hiv-, HC-,GC/CT-, 39/256 Visit Date: 03/28/25 Last Updated by: Eli Smith CNM 30 yo . no dates. 1st sono 03/16/25. IUP 15w1. EDC: 09/06/25. NIPT/carrier screen- Office Procedures OBC Clinic LOC & Office Proc's Nursing/Assessment Patient Status: Established Patient OB Clinic Nursing Assessment: Medication Reconciliation, Update PMH in EMR and Vital Signs OB Clinic Coordination of Care: Complex Care and Chronic Disease 1-5, Consent,records obtained, informed consent, Education Simp Pt/Fam, 1 Ins Authorization, Lab and Imaging orders, Results/Orders obtained and Staff clarify orders Special Needs: Heart tones Established Patient Charge Established Patient Point Assignment: 150 Established Patient Point Charge: EP Level 4 (120-155) Assessment & Plan Diagnosis / Problem List (1) Pmqtp-ppc-nbcva fetus, third trimester: Status: Acute Plan Discussed labor precautions. Kick count twice a day. Reviewed ER precautions. Follow-up on ultrasound. It is pending and return to his OB check Additional Plan Follow Up: 2 Weeks (obc)
== END 2025-07-24 15:39 | disposition home or self-care (01) ==
LOC: HODSOBC 14:46
PROVIDERS: Supervising Provider Advanced Practice Midwife; Visit Provider Advanced Practice Midwife
DX: O09.893 Supervision of other high risk pregnancies, third trimester (principal); O36.5930 Maternal care for other known or suspected poor fetal growth, third trimester, not applicable or unspecified; Z3A.33 33 weeks gestation of pregnancy; Z28.21 Immunization not carried out because of patient refusal
CPT/HCPCS: 99214; G0463

== ENCOUNTER → 2025-07-27 | Outpatient (CLI) | payer OTHER, SELFPAY ==
--- NOTE | 2025-07-27 11:30 | XR_ITS ---
Examination: Complete OB ultrasound greater than 14 weeks Date and time of exam: July 27, 2025, 1136 hours INDICATIONS: Size dates discrepancy Findings: Viable intrauterine single fetus with single amniotic sac presentation cephalic spine maternal right Cardiac motion 147 bpm Placenta right lateral grade 2 Umbilical cord insertion seen Amniotic fluid index 8.1 cm Cervix 2.7 cm Ovaries obscured by bowel gas. Composite estimated gestational age based on BPD, head circumference, abdominal circumference, femur length is 33 weeks 0 days Estimated weight 1996 g. Survey of intracranial anatomy, spinal anatomy, abdominal anatomy, four-chamber heart performed with no abnormalities identified. Impression: Viable intrauterine gestation cephalic presentation.
== END | disposition home or self-care (01) ==
LOC: CDIM 11:23
PROVIDERS: PCP Family Medicine; Referring Provider Advanced Practice Midwife; Visit Provider Advanced Practice Midwife
DX: O26.842 Uterine size-date discrepancy, second trimester (principal); Z3A.33 33 weeks gestation of pregnancy
CPT/HCPCS: 76805

== ENCOUNTER 2025-08-08 14:21 | Outpatient (AMB) | payer OTHER, SELFPAY ==
[2025-08-08 14:33] VITALS: BP 105/70; PULSE 96; RESP 18; TEMP 36.2; O2SAT 98; BMI 26.1
--- NOTE | 2025-08-08 14:33 | AMB.OBPNC ---
Vital Signs 08/08/25 14:33 Height 1.5 m Height Method Stated Weight 58.74 kg Weight Measurement Method Standing Scale BMI 26.1 BP 105/70 Blood Pressure Source Automatic Cuff Blood Pressure Location Left Upper Arm Position Sitting Respiration 18 Pulse 96 Pulse Source Monitor Temp 97.2 F Temp Source Oral Pulse Oximetry (%) 98 Oxygen Delivery Method Room Air Allergies/Home Meds Allergies & Medications Allergies NKA* Allergy (Uncoded 08/08/25 14:34) Medication Reconciliation No Known Home Medications 05/15/25 [History Confirmed 08/08/25] Immunizations Immunizations Flu Vaccine in the Last 12 Months: Yes Flu Vaccine Exclusion Criteria: Already Received Care OB Visit Log OB Flowsheet Initial Weight: Not Recorded Date <del>?</del> EGA Weight BP Alb Glu CTX Pres Fundal ht FHR Mov Dilation Station Effacement Hx Notes Visit Note 02/06/25 <del>?</del> 9w 5d 52.673 kg 115/62 absent unknown 9 140 29 yo for OBI. no dates, sab 10/18. no contraception, planned , denies SAB s/s, c/o nausea start diclegesis and vitamin D with PNV. discuss sab precaution, OB panel today, discuss NIPT and carrier screen and cost, patient will let me know if ok to do labs. schedule sono at [facility] [place] with MFM. rtc 4 week obc 02/27/25 <del>?</del> 12w 5d 52.673 kg 118/78 absent unknown 14 135 absent no ob complaints, no bleeding, unsure re NIPT patient sched for OB sono at [facility], unsure about NIPT due to insurance cost. no OB complaints, sab precaution patient sched for OB sono at [facility], unsure about NIPT due to insurance cost. no OB complaints, sab precaution. patient needs OB panel [place] 03/28/25 <del>?</del> 16w 6d 53.694 kg 116/74 absent unknown 16 135 active Doing well. No OB complaints. No bleeding. No leaking. No contractions. MFM appointment pending OB panel today at the OB lab. Follow-up on pending [place] PAPA appointment. Discussed dates. SAB precautions. Return in 4 weeks OB check 05/15/25 <del>?</del> 23w 5d 56.416 kg 111/73 absent unknown 23 135 active Doing well. Reports movement. No complaints of labor. Denies bleeding, contractions, leaking Third trimester labs ordered. Schedule sonogram at 32 weeks for growth. Discussed labor precautions. Increase fluids. Return in 4 weeks OB check 06/19/25 <del>?</del> 28w 5d 56.926 kg 109/74 absent unknown 28 136 active Doing well. Reports good movement. Patient needs a note from work with due date. Denies leaking, bleeding, contractions Discussed abnormal 1 hour. Schedule 3-hour GTT. Labor precautions and danger signs symptoms reviewed. Growth sono at next visit. 07/10/25 <del>?</del> 31w 5d 57.72 kg 121/77 absent unknown 30 136 active Denies leaking, bleeding, contractions. Reports good movement. No OB complaints Discussed normal 3-hour GTT. Tdap today. Schedule anatomy scan for growth. [facility] Discussed labor precautions. Return in 2 weeks for OB check. Discussed diet, weight gain, walk 2 hours a day 07/24/25 <del>?</del> 33w 5d 58.967 kg 104/69 absent cephalic 33 135 active Denies leaking, bleeding, contractions. Reports good movement Reviewed 3-hour GTT. Only 1 value was elevated. Discussed labor precautions. Kick count twice a day. We discussed ER precautions and diet and weight. Ultrasound is pending. 08/08/25 <del>?</del> 35w 6d 58.74 kg 105/70 absent cephalic 35 135 active Denies leaking, bleeding, contractions. Reports good movement Group B strep today. Discussed labor precautions and kick count twice a day. Discussed danger signs symptoms and ER precautions and return in a week for OB check ORALIA Calculator Estimated Delivery Date Method Current WG Current Estimate 09/06/25 Ultrasound #1 35w 6d Other Estimates 09/06/25 Ultrasound #2 35w 6d 09/06/25 Manual 35w 6d no dates. Final oralia 09/06/25 Notes Visit Date: 07/10/25 Last Updated by: Eli Smith CNM 3 hr gtt: 2 hr gtt elevated, 3 values normal Visit Date: 06/19/25 Last Updated by: Eli Smith CNM 3RD TRI LABS 1 HR GTT: 176. 12/37, A1: 4.9 Visit Date: 05/15/25 Last Updated by: Eli Smith CNM O+,abs-, rpr;;nr, rub imm, hbsag-, hiv-, HC-,GC/CT-, Visit Date: 03/28/25 Last Updated by: Eli Smith CNM 30 yo . no dates. 1st sono 03/16/25. IUP 15w1. EDC: 09/06/25. NIPT/carrier screen- Office Procedures OBC Clinic LOC & Office Proc's Nursing/Assessment Patient Status: Established Patient OB Clinic Nursing Assessment: Medication Reconciliation, Update PMH in EMR and Vital Signs OB Clinic Coordination of Care: Consent,records obtained, informed consent, Education Simp Pt/Fam, Lab and Imaging orders, Results/Orders obtained and Staff clarify orders Special Needs: Heart tones Established Patient Charge Established Patient Point Assignment: 110 Established Patient Point Charge: EP Level 3 (80-115) Assessment & Plan Diagnosis / Problem List (1) Eyviq-oiv-tpbqw fetus, third trimester: Status: Acute (2) Encounter for supervision of high risk in third trimester, antepartum: Status: Acute Plan Discussed labor precautions. Kick count. GBS today. Discussed danger signs symptoms and ER precautions. Return in a week OB check Additional Plan Follow Up: 1 Week (obc)
== END 2025-08-08 14:41 | disposition home or self-care (01) ==
LOC: HODSOBC 14:21
PROVIDERS: Supervising Provider Advanced Practice Midwife; Visit Provider Advanced Practice Midwife
DX: O09.893 Supervision of other high risk pregnancies, third trimester (principal); O36.5930 Maternal care for other known or suspected poor fetal growth, third trimester, not applicable or unspecified; Z3A.35 35 weeks gestation of pregnancy; Z36.85 Encounter for antenatal screening for Streptococcus B
CPT/HCPCS: 99213; G0463

== ENCOUNTER 2025-08-19 04:02 | Inpatient (IN) | payer OTHER, SELFPAY ==
[2025-08-19] VITALS (31 sets, daily range): BP systolic 0–140; BP diastolic 0–78; PULSE 68–136; RESP 16–99; TEMP 36.6–37.2; O2SAT 96–97; BMI 24.3
[2025-08-19] MEDS: Ampicillin Inj 2,000 MG in SODIUM CHLORIDE 0.9% (POP) 100 ML 200 MG IV (05:30)
--- NOTE | 2025-08-19 05:43 | ESHP_ITS ---
Documentation for date of: 08/19/25 OB Labor/Induct. HPI History of Present Illness Chief complaint: Active labor, ruptured membranes at 0345 today : 2 Para: 0 Term pregnancies: 0 pregnancies: 0 Living children: 0 History of Abortions: Spontaneous and Elective: 1 History of Vaginal deliveries: 0 History of sections: No History of : No Date of last menstrual period: 09/24/24 ORALIA: 09/06/25 Gestational Age (weeks): 37 Gestational Age (days): 4 Gestational age based on last menstrual period: 47 History of present illness: The patient is a 30-year-old -0-1-0 at 37-4/7 weeks who presented to triage in active labor. She broke her bag at 3:45 in the morning clear fluid and presented to the hospital by 4 oh 5 in the morning. Patient was 5 cm dilated and admitted. Her group B strep was done 1216 and is pending. Trying to call [facility] for that. Her has been uncomplicated she is seeing Eli Smith at the [facility] OB clinic. All her records are up-to-date in the chart besides her group B strep. History of Present Dating criteria: LMP confirmed by 1st trimester US Adequate Care: Yes Ultrasounds: normal mid trimester US Obstetrical complications: none Medical complications: none Labs Labs: Positive: Rubella Titre, Negative: RPR, Hepatitis B, HIV, Chlamydia and Gonorrhea and Unknown: Herpes Type 1, Herpes Type 2, Group Beta Strep and Covid-19 Past Medical History Surgical History SURGICAL: Negative Section Past Medical History Comments PMH COMMENT: Patient denies any significant past medical history or surgical history. She has had 1 miscarriage in the past. Meds Home Medications and Allergies Home Medications ?Medication ?Instructions ?Recorded ?Confirmed ?Type No Known Home Medications 05/15/2507/25 History Allergies Allergy/AdvReac Type Severity Reaction Status Date / Time No Known Allergies Allergy Verified 08/19/25 05:14 OB Exam Physical Exam Vital signs: Temp Pulse Resp BP 99 F 109 H 16 116/56 L 08/19/25 04:38 08/19/25 05:20 08/19/25 04:38 08/19/25 05:20 Routine Abdominal Exam Abdominal: Present soft Detailed Labor and Delivery Exam Effacement (%): 80 Cervix position: mid station: -1 Consistency: soft Presentation: Vertex Membranes: ruptured Amniotic fluid: clear monitor accelerations: 15x15 monitor decelerations: None skilled nursing variability: Moderate (11-25) Contraction frequency (min): Every 2 to 3 minutes. Tachysystole: No Contraction intensity: Strong OB Assessment & Plan Assessment and Plan (1) Supervision of high risk in third trimester: Status: Acute Assessment and plan: Admit patient, request to get group B strep labs. Epidural if desired. Additional Plan Induction method: none Plan: anticipate NVD
[2025-08-19] MEDS: fentaNYL CIT INJ 50 mCg/ML AMP 2ML 100 MCG IVP ×2 (05:55→07:30)
[2025-08-19 05:57] LABS: Basophils # (Auto) 0.0 Thou/mm3 (0.0-0.2); Basophils % (Auto) 0 % (0-2.5); Eosinophils # (Auto) 0.0 Thou/mm3 (0.0-0.5); Eosinophils % (Auto) 0 % (0-10); Hematocrit 38.1 % (36.0-46.0); Hemoglobin 12.9 g/dL (12.0-16.0); Immature Granulocytes Auto 0.05 Thou/mm3 (0.00-0.00); Lymphocytes # (Auto) 1.5 Thou/mm3 (1.0-4.8); Lymphocytes % (Auto) 12 % (10-50); Mean Corpuscular HGB Conc 33.9 g/dl (31.0-37.0); Mean Corpuscular Hemoglobin 29.9 pg (25.0-35.0); Mean Corpuscular Volume 88 fL (80-100); Monocytes # (Auto) 0.4 Thou/mm3 (0.0-0.8); Monocytes % (Auto) 3 % (0-12); Neutrophils # (Auto) 10.0 Thou/mm3 (1.8-7.7); Neutrophils % (Auto) 84 % (37-80); Nucleated Red Blood Cell # 0.00 Thou/mm3 (0.00-0.00); Nucleated Red Blood Cell % 0 /100 WBC (0); Platelet Count 267 Thou/mm3 (140-440); RDW Standard Deviation 48.1 fL (36.4-46.3); Red Blood Count 4.31 Miln/mm3 (4.00-5.20); White Blood Count 11.9 Thou/mm3 (3.6-11.0)
[2025-08-19 06:40] LABS: Syphilis Nonreactive (Nonreactive)
[2025-08-19] MEDS: LIDOCAINE HCL 1% 20 ML VIAL INFL (08:20)
[2025-08-19] MEDS: MINERAL OIL 30 ML UDC TOP (08:25)
[2025-08-19] MEDS: OXYTOCIN in NS 20 units 20 UNIT/1,000 ML BAG 125 UNIT IV (08:30)
--- NOTE | 2025-08-19 09:06 | OBDSUM_ITS ---
Data (Cheek) Data Hx Section: No Maternal Blood Type: O Pos Rubella Titre: Positive RPR: Non-reactive Labs: Negative: RPR, Hepatitis B, HIV, Chlamydia and Gonorrhea and Unknown: Group Beta Strep : 2 Term: 0 : 0 Livin Abortions: Spontaneous & Theraputic: 1 Delivery Data (Cheek) Labor Data Initiation of labor: Spontaneous Induction/Augmentation Agent: None ROM date: 08/19/25 ROM time: 03:45 Amniotic membrane rupture type: Spontaneous Amniotic fluid description: Clear Delivery Data EDC: 09/06/25 EDC calculated by:: LMP/early US confirmation Date of arrival to unit: 08/19/25 Time of arrival to unit: 04:00 Onset of labor date: 08/19/25 Onset of labor time: 03:45 Complete dilation date: 08/19/25 Complete dilation time: 08:12 delivery date: 08/19/25 delivery time: 08:28 Gestational age (weeks): 37 Gestational age (days): 6 Placenta delivery date: 08/19/25 Placenta delivery time: 08:32 Stage 1 total time: Labor - Stage 1 Duration 4 hours and 27 minutes Delivered by: Cora Ibarra (OB Clinic) Delivery nurse: Solange Mercedes RN [place]orn nurse: Triny JAIN RN Payroll Consultant at delivery: No Support person(s) at delivery: fob and mother of pt Delivery Method Delivery method: Normal Vaginal Delivery Presentation: Vertex position: OA Anesthesia Type Anesthesia Type: None Delivery Room Medications Delivery room medications: Lidocaine (local) and Pitocin 20 u IV Placenta Placenta delivery description: Spontaneous Cord blood sent to lab: Yes cord blood collection: Cord Blood Type Episiotomy Episiotomy description: Midline Perineal repair Sutures used for repair: other (2-0 Chromic) EBL Estimated blood loss (ml): 75 Umbilical Cord cord description: 3 Vessels, Nuchal Cord and Loose Additional Procedures The patient is a 30-year-old -0-1-0 presented to labor and delivery approximately 4:00 in the morning on 08/19/2025 reporting ruptured membranes at 3:45 in the morning. Patient was 37-3/7 weeks with an EDC of 09/06/2025. She was examined and found to be 5 cm dilated she was admitted in labor. Patient desired to go natural and had 2 doses of fentanyl total during her labor. She went on to progressed to complete by 0812 and began pushing shortly thereafter. She pushed approximately 15 minutes delivering a liveborn male at 0828. Findings: Liveborn male in the CAROL presentation with a loose nuchal cord x 1, no meconium. Apgars were 7 and 9. Weight was 5 pounds 10 ounces. As the baby was vigorous at , he was placed directly on his mother's chest and delayed cord clamping performed for 2 to 3 minutes. The cord was then clamped and cut and the infant stayed on his mother's chest. Cord blood was collected and cord gases were saved. The placenta was then complete spontaneous grossly normal delivering approximately 5 minutes after the baby delivered. Patient had a small midline episiotomy performed during delivery repaired in a standard fashion with lidocaine using 2-0 chromic. Complications were none. Condition both mom and were in stable condition the delivery room. Complications Complications: None Lena Data (Cheek) Lena Data 's name: Tejas order: 1 's gender: Male weight (gms): 2550 g Weight (pounds): 5 lbs and 9.9 ozs Lena length: 48.26 cm 1 minute: 7 5 minutes: 9
[2025-08-19] MEDS: KETOROLAC INJ 30 MG/ML VIAL IVP (09:22)
[2025-08-19] MEDS: BENZO/LANO/ALOE (Dermoplast) 60 GM CAN 1 SPRAY TOP (10:19)
[2025-08-19] MEDS: DOCUSATE SOD 100 MG CAPSULE PO (21:28)
[2025-08-20] VITALS: BP 108/63; PULSE 79; RESP 20; TEMP 36.6; O2SAT 98
[2025-08-20 03:50] VITALS: BP 101/59; PULSE 79; RESP 20; TEMP 36.6; O2SAT 98
[2025-08-20 06:10] LABS: Basophils # (Auto) 0.1 Thou/mm3 (0.0-0.2); Basophils % (Auto) 1 % (0-2.5); Eosinophils # (Auto) 0.1 Thou/mm3 (0.0-0.5); Eosinophils % (Auto) 1 % (0-10); Hematocrit 29.5 % (36.0-46.0); Hemoglobin 9.9 g/dL (12.0-16.0); Immature Granulocytes Auto 0.09 Thou/mm3 (0.00-0.00); Lymphocytes # (Auto) 3.7 Thou/mm3 (1.0-4.8); Lymphocytes % (Auto) 27 % (10-50); Mean Corpuscular HGB Conc 33.6 g/dl (31.0-37.0); Mean Corpuscular Hemoglobin 30.1 pg (25.0-35.0); Mean Corpuscular Volume 90 fL (80-100); Monocytes # (Auto) 1.0 Thou/mm3 (0.0-0.8); Monocytes % (Auto) 8 % (0-12); Neutrophils # (Auto) 8.7 Thou/mm3 (1.8-7.7); Neutrophils % (Auto) 63 % (37-80); Nucleated Red Blood Cell # 0.00 Thou/mm3 (0.00-0.00); Nucleated Red Blood Cell % 0 /100 WBC (0); Platelet Count 223 Thou/mm3 (140-440); RDW Standard Deviation 50.4 fL (36.4-46.3); Red Blood Count 3.29 Miln/mm3 (4.00-5.20); White Blood Count 13.7 Thou/mm3 (3.6-11.0)
--- NOTE | 2025-08-20 08:42 | PD.LDDS ---
DS: Providers Provider Date of admission: 08/19/25 04:30 Primary care physician: Physician No Primary/Family Admitting Provider: Cora Ibarra MD (OB Clinic) Attending Provider on Admission: Cora Ibarra MD (OB Clinic) Consults: 08/19/25 09:35 Referral Routine Comment: Attending Provider on DC: Sherron Beltrán MD Discharging Provider: Sherron Beltrán MD DS: Diagnosis Discharge Diagnosis (1) Sbhhb-qhd-ldpjh fetus, third trimester: Status: Acute (2) Vaginal delivery: Status: Acute Problem List Completed Was Problem List Reviewed/Reconciled?: Yes Summary/Hosp Course Brief History: The patient is a 30-year-old -0-1-0 at 37-4/7 weeks who presented to triage in active labor. She broke her bag at 3:45 in the morning clear fluid and presented to the hospital by 4 oh 5 in the morning. Patient was 5 cm dilated and admitted. Her group B strep was done 121 and is pending. Trying to call [facility] for that. Her has been uncomplicated she is seeing Eli Smith at the [facility] OB clinic. All her records are up-to-date in the chart besides her group B strep.she had an on 08/19/2025 and is > 24 hours now Peripartum Data Delivery Method: Normal Vaginal Delivery Episiotomy Description: Midline Laceration Description: see Delivery Summary complications: none Status at Discharge Cognitive/behavioral status at discharge: Patient has no complaints no Headache or blurry vision or epigastric pain No Chest pain or SOB No Palpitations No Nausea or vomiting or constipation No Back pain No Dysuria no Dizziness no calf pain / independent ambulation She is voiding spontaneously / adequately Passing flatus yes/ BM Lochia average yes Breast/ Bottle feeding Time Spent with Patient Time attestation: Total time spent providing and/or coordinating discharge services: Exam Vital Signs Temp Pulse Resp BP Pulse Ox O2 Del Method 97.9 F 79 20 101/59 L 98 Room Air 08/20/25 03:50 08/20/25 03:50 08/20/25 03:50 08/20/25 03:50 08/20/25 03:50 08/20/25 03:50 Narrative Exam alert x3 chest clear CVS RRR NO thyromegaly Uterus is nontender Uterus is firm/ appropriate size Just below the umbilicus Bowel sounds present Abdomen soft no hernias noted/no CVAT No calf tenderness Edema mild Discharge Plan Plan Patient Disposition: HOME (Self Care) Patient condition on transfer: Stable Prescriptions/Referrals Prescriptions/Med Rec: New ibuprofen 400 mg Tablet 800 mg PO X1 PRN (Reason: uterine cramping) Qty: 30 0RF Referrals: No Primary/Family,Physician [Primary Care Provider] Patient/Caregiver Discharge Instructions Discharge Activity: activity as tolerated Other Discharge Activity Instructions:: pelvic rest x 6 weeks / follow up with her ob in 4 to 6 weeks Print Language: Montserratian Stand Alone Forms: Amee Award Info., Patient Portal Info Letter Discharge Order Discharge Orders: Discharge (Routine); Ordered 08/20/25 Ordered By: Sherron Beltrán Planned Discharge Date 08/20/25
[2025-08-20 08:45] VITALS: BP 120/71; PULSE 74; RESP 15; TEMP 36.7; O2SAT 99
[2025-08-20] MEDS: DOCUSATE SOD 100 MG CAPSULE PO (08:54)
== END 2025-08-20 15:00 | disposition home or self-care (01) | DRG 807 ==
LOC: S4SX 04:57 → S4NX 10:58
PROVIDERS: Admitting Provider Obstetrics & Gynecology; Visit Provider Obstetrics & Gynecology
DX: O69.81X0 Labor and delivery complicated by cord around neck, without compression, not applicable or unspecified (principal); O36.5930 Maternal care for other known or suspected poor fetal growth, third trimester, not applicable or unspecified; Z37.0 Single live birth; Z3A.37 37 weeks gestation of pregnancy
CPT/HCPCS: 36415; 59025; 59409; 80307; 85025; 86780; 86850; 86900; 86901; 94762; J0290; J1885; J2590; J3010; J3490; A9270